=== PATIENT | male | born 1945 | race Caucasian/White ===

== ENCOUNTER 2016-07-26 15:54 | Observation (INO) | payer MEDICARE ==
[~2016-07-26 15:54] MED LIST: ALEVE220 M1 PO; ALEVE220 M4 PO; ASPIRIN325 MG PO; ASPIRIN81 M1 PO; ASPIRIN81 MG PO; BYSTOLIC10 M1 PO; BYSTOLIC5 MG PO; CRESTOR10 MG/TAB PO; CRESTOR5 MG PO; CRESTOR5 MG/TAB PO; CYCLOBENZAPRINE5 M1 PO; DAZIDOX20 MG PO; FLEXERIL10 MG PO; FLUOXETINE HCL40 M1 PO; FLUOXETINE HCL40 MG PO; FOLIC ACID1 M1 PO; GABAPENTIN300 M1 PO; GABAPENTIN300 MG PO; HYDROCHLOROTH12.5 MG PO; HYDROCHLOROTHIA25 M1 PO; HYDROCHLOROTHIA25 MG PO; IMDUR30 MG PO; ISORDIL30 MG PO; ISOSORBIDE MON PO; LASIX40 M1 PO; LEVOTHYROXINE25 MC3 PO; LOPRESSOR50 MG PO; LOTENSIN40 M1 PO; LOTREL 10/20 MG1 CAP PO; MELOXICAM15 M1 PO; NITROGLYCERIN0.4 M2 SL; NITROQUICK0.4 MG SL; NORCO 5-325 TA1 EACH PO; NORVASC10 M2 PO; NORVASC5 M2 PO; OXYCODONE-ACET1 EAC3 PO; OXYCODONE/APAP PO; PERCOCET 5-3251 EACH PO; PERCOCET 5/3251 TAB PO; PERCOCET 7.5/321 TA1 PO; PLAVIX75 M1 PO; PLAVIX75 MG PO; POTASSIUM CHLO20 ME3 PO; PREVACID30 MG PO; PROTONIX40 M2 PO; RANEXA500 M1 PO; RANEXA500 MG PO; TRAMADOL HCL50 M2 PO; TRILIPIX135 MG PO; ULTRAM50 M1 PO; ULTRAM50 MG PO; VITAMIN D35000 UNI2 PO; ZETIA10 MG PO; [UNRECOGNIZED DRUG - CODE] PO
[2016-07-26 16:40] LABS: BASO % 0.6 % (0-2); EOSINOPHIL ABSOLUTE COUNT 0.1 tho/cmm (0.0-0.7); HGB-HEMOGLOBIN 14.3 gm/dl (13.5-17.0); IMMATURE GRANULOCYTES ABSOLUTE 0.01 tho/cmm (0-0.03); IMMATURE GRANULOCYTES PERCENT 0.2 % (0-0.3); LYMPH ABSOLUTE COUNT 2.5 tho/cmm (0.8-4.5); MCH (MEAN CORPUSCULAR HGB) 31.2 pg (28.0-32.0); MCV (MEAN CELL VOLUME) 91.5 fl (82.0-96.0); MEAN PLATELET VOLUME 8.6 cmc (9.4-12.4); MONO % 6.3 % (0-12); MONOCYTE ABSOLUTE COUNT 0.4 tho/cmm (0.0-1.2); NEUTROPHIL ABSOLUTE COUNT 3.4 tho/cmm (1.6-8.0); NEUTROPHIL-AUTOMATED 3.4 tho/cmm (1.6-8.0); NEUTROPHILS % 51.9 % (40-80); PLATELET COUNT 175 tho/cmm (150-450); RED BLOOD COUNT 4.59 mil/cmm (4.40-5.70); RED CELL DISTRIBUTION WIDTH 14.1 % (12.4-16.4); WHITE BLOOD COUNT 6.5 tho/cmm (4.0-10.0)
[2016-07-26 16:45] LABS: INR 0.9 INR (0.9-1.1); PROTHROMBIN TIME 10.8 SECONDS (9.0-13.6)
[2016-07-26 16:57] LABS: BLOOD UREA NITROGEN 18 mg/dl (6-24); CARBON DIOXIDE-VENOUS 27 mmol/L (22-32); CHLORIDE 103 mmol/l (96-110); CREATININE 0.94 mg/dl (0.60-1.30); GLUCOSE 110 mg/dL (70-110); SODIUM 139 mmol/L (135-145); eGFR VALUE FOR BLACK >90 mL/Min
[2016-07-26 16:58] LABS: ANION GAP 13 mmol/L (0-20); POTASSIUM 3.6 mmol/L (3.7-5.1)
[2016-07-28] MEDS ORDERED: XANAX0.25 M1 PO (13:35)
[2016-07-28] MEDS ORDERED: NORVASC5 M2 PO (13:35)
== END 2016-07-28 15:00 ==
LOC: EDMED 15:54 → EMR2 18:16 → PCUB 19:41
PROVIDERS: Emergency Medicine; ADMIT Internal Medicine Cardiovascular Disease
PROC: B2111ZZ Fluoroscopy of Multiple Coronary Arteries using Low Osmolar Contrast (ICD-10-PCS; principal; 2016-07-28)
DX: I25.10 Atherosclerotic heart disease of native coronary artery without angina pectoris (principal); I10 Essential (primary) hypertension; E78.5 Hyperlipidemia, unspecified; I34.0 Nonrheumatic mitral (valve) insufficiency; Z79.02 Long term (current) use of antithrombotics/antiplatelets; Z79.82 Long term (current) use of aspirin; Z79.899 Other long term (current) drug therapy; Z88.8 Allergy status to other drugs, medicaments and biological substances; Z87.891 Personal history of nicotine dependence; Z82.49 Family history of ischemic heart disease and other diseases of the circulatory system; Z90.49 Acquired absence of other specified parts of digestive tract; Z98.890 Other specified postprocedural states
CPT/HCPCS: A9500; C1894; G0378; J1644; J2250; J2270; J2785; J3010; Q9967

== ENCOUNTER 2016-07-31 18:15 | Emergency (ER) | payer MEDICARE ==
[~2016-07-31 18:15] MED LIST changes: +XANAX0.25 M1 PO
[2016-07-31 18:59] LABS: BASO % 0.4 % (0-2); EOS % 3.4 % (0-7); EOSINOPHIL ABSOLUTE COUNT 0.3 tho/cmm (0.0-0.7); HCT-HEMATOCRIT 37.7 % (36.0-53.5); IMMATURE GRANULOCYTES ABSOLUTE 0.02 tho/cmm (0-0.03); IMMATURE GRANULOCYTES PERCENT 0.3 % (0-0.3); LYMPH % 56.7 % (20-45); LYMPH ABSOLUTE COUNT 4.5 tho/cmm (0.8-4.5); MCH (MEAN CORPUSCULAR HGB) 31.2 pg (28.0-32.0); MCHC MEAN CORPUSCULAR HGB CONC 34.5 % (32.0-36.0); MCV (MEAN CELL VOLUME) 90.4 fl (82.0-96.0); MONO % 5.5 % (0-12); MONOCYTE ABSOLUTE COUNT 0.4 tho/cmm (0.0-1.2); NEUTROPHIL ABSOLUTE COUNT 2.7 tho/cmm (1.6-8.0); NEUTROPHIL-AUTOMATED 2.7 tho/cmm (1.6-8.0); NEUTROPHILS % 33.7 % (40-80); PLATELET COUNT 167 tho/cmm (150-450); RED BLOOD COUNT 4.17 mil/cmm (4.40-5.70); RED CELL DISTRIBUTION WIDTH 13.6 % (12.4-16.4); WHITE BLOOD COUNT 7.9 tho/cmm (4.0-10.0)
[2016-07-31 19:13] LABS: ANION GAP 16 mmol/L (0-20); BLOOD UREA NITROGEN 20 mg/dl (6-24); CARBON DIOXIDE-VENOUS 24 mmol/L (22-32); CHLORIDE 103 mmol/l (96-110); GLUCOSE 115 mg/dL (70-110); POTASSIUM 3.1 mmol/L (3.7-5.1); SODIUM 140 mmol/L (135-145); eGFR VALUE FOR BLACK 55 mL/Min
== END 2016-07-31 21:00 ==
LOC: EDMED 18:15
PROVIDERS: Emergency Medicine
DX: E86.0 Dehydration (principal); T46.1X5A Adverse effect of calcium-channel blockers, initial encounter; F10.129 Alcohol abuse with intoxication, unspecified; R55 Syncope and collapse; Y90.6 Blood alcohol level of 120-199 mg/100 ml; I25.10 Atherosclerotic heart disease of native coronary artery without angina pectoris; I10 Essential (primary) hypertension; Z95.5 Presence of coronary angioplasty implant and graft; Z79.899 Other long term (current) drug therapy; Z79.82 Long term (current) use of aspirin
CPT/HCPCS: G0480; J7030